=== PATIENT | female | born 1980 | race Caucasian/White ===

== ENCOUNTER 2019-10-11 19:35 | Emergency (ER) | payer OTHER, SELFPAY ==
[2019-10-11 19:42] VITALS: BP 141/90; PULSE 75; RESP 20; TEMP 36.7; O2SAT 100
--- NOTE | 2019-10-11 19:44 | ED.FEMALEGU ---
HPI - Female Genitourinary General Chief complaint: Urogenital-Female Stated complaint: bladder infection Time Seen by Provider: 10/11/19 19:44 Source: patient and RN notes reviewed History of Present Illness HPI Narrative: Patient is a 39-year-old female who presents the urgent care with complaints of a possible UTI. States that last night she noticed pain with urination and increased urinary frequency. Patient states that she has not had any fever, nausea, vomiting, abdominal pain. Denies of any known frequency of UTIs. No other acute complaints. No acute distress noted. Patient read the plan of care. Related Data Home Medications Medication Instructions Recorded Confirmed alprazolam 0.5 mg PO TID 03/10/19 04/02/19 pantoprazole 40 mg PO DAILY 03/10/19 04/02/19 Allergies Allergy/AdvReac Type Severity Reaction Status Date / Time adhesive tape Allergy Intermediate Rash Verified 10/11/19 19:45 Sulfa (Sulfonamide Allergy Mild Unknown Verified 10/11/19 19:45 Antibiotics) Review of Systems Review of Systems: Narrative: CONSTITUTIONAL: Denies fever, chills, or sweats. EYES: Denies visual changes, redness, or discharge. ENT: Denies rhinorrhea, congestion, sore throat, or otalgia. CARDIOVASCULAR: Denies chest pain, palpitations, or edema. RESPIRATORY: Denies cough or dyspnea. GASTROINTESTINAL: Denies abdominal pain, nausea, vomiting, or diarrhea. GENITOURINARY: Reports of dysuria and urinary frequency SKIN: Denies rash or itching. MUSCULOSKELETAL: Denies back pain, joint pain, or myalgia. NEUROLOGIC: Denies headache, numbness, or weakness. All other systems reviewed are negative, except as documented in HPI. [facility] Surgical History Surgical History (Updated 04/24/19 @ 09:07 by Marzena Saavedra, JUAN DANIEL, BC) H/O tubal ligation History of appendectomy History of cholecystectomy History of endometrial ablation Hx of tonsillectomy Social History Social History Gender identity (if verbalized by the patient): Female Comments At the time of my signature, I reviewed and agree with the nursing past medical, surgical, social, and family history. There is no relevant family history pertinent to the patient complaint. Exam Narrative: Exam Narrative: GENERAL: This is a well-nourished, well-developed patient, in no apparent distress. HEAD: normocephalic, atraumatic. EYES: PERRL. Sclera clear/white. Vision is grossly intact. EARS: External ears normal NOSE: External nose normal with no obvious nasal discharge, nares without redness, no rhinorrhea. THROAT: Mucous membranes moist NECK: Neck supple GASTROINTESTINAL: Abdomen soft, non-tender, nondistended. SKIN: warm, intact with no suspicious lesions or rash, good texture and turgor. NEURO: awake, alert, and oriented to person, place and time. There were no obvious focal neurologic abnormalities. EXTREMITIES: No clubbing, cyanosis, or edema. BACK: Negative bilateral CVA tenderness Course Vital Signs Vital signs: Vital Signs Temperature 98.1 F 10/11/19 19:42 Pulse Rate 75 10/11/19 19:42 Respiratory Rate 20 10/11/19 19:42 Blood Pressure 141/90 H 10/11/19 19:42 Pulse Oximetry 100 10/11/19 19:42 Temperature 98.1 F 10/11/19 19:42 Pulse Rate 75 10/11/19 19:42 Respiratory Rate 20 10/11/19 19:42 Blood Pressure 141/90 H 10/11/19 19:42 Pulse Oximetry 100 10/11/19 19:42 Reviewed?patient is informed that they may have pre-hypertension or hypertension based on a blood pressure reading in the department. I recommend the patient call the primary care provider listed on their discharge instructions or a physician of their choice this week to arrange follow-up for further evaluation of possible pre-hypertension or hypertension. MDM - Female Genitourinary MDM Narrative Medical decision making narrative: Reviewed lab results with the patient. She is aware that urine analysis was indicative of
== END 2019-10-11 19:58 | disposition home or self-care (01) ==
PROVIDERS: Emergency Provider Nurse Practitioner Family
DX: N39.0 Urinary tract infection, site not specified (principal); K21.9 Gastro-esophageal reflux disease without esophagitis; F41.9 Anxiety disorder, unspecified
CPT/HCPCS: 81003; 87077; 87086; 87088; 87186; 99213; G0463

== ENCOUNTER 2019-11-04 14:04 | Emergency (ER) | payer OTHER, SELFPAY ==
[2019-11-04 14:18] VITALS: BP 150/92; PULSE 74; RESP 20; TEMP 37.1; O2SAT 98
--- NOTE | 2019-11-04 14:18 | ED.GENADULT ---
HPI - General Adult General Chief complaint: Upper Respiratory Infection Stated complaint: left ear pain/pressure Time Seen by Provider: 11/04/19 14:18 Source: patient Mode of arrival: ambulatory Limitations: no limitations History of Present Illness HPI narrative: 39-year-old female patient presents to the [facility] with complaints of left ear pain that started yesterday. Patient states she has chronic issues with sinus and sinus drainage and states she has been using her nasal steroid as well as a daily antihistamine that she takes at night but noticed that she started having pain in the left ear yesterday. Denies any fevers. Denies any sore throat, chest pain or shortness of breath. Related Data Home Medications Medication Instructions Recorded Confirmed alprazolam 0.5 mg PO TID 03/10/19 04/02/19 pantoprazole 40 mg PO DAILY 03/10/19 04/02/19 Allergies Allergy/AdvReac Type Severity Reaction Status Date / Time adhesive tape Allergy Intermediate Rash Verified 11/04/19 14:20 Sulfa (Sulfonamide Allergy Mild Unknown Verified 11/04/19 14:20 Antibiotics) Review of Systems Review of Systems: Narrative: CONSTITUTIONAL: Denies fever, chills, or sweats. EYES: Denies visual changes, redness, or discharge. ENT: Denies rhinorrhea, congestion, sore throat, positive left otalgia. CARDIOVASCULAR: Denies chest pain, palpitations, or edema. RESPIRATORY: Denies cough or dyspnea. GASTROINTESTINAL: Denies abdominal pain, nausea, vomiting, or diarrhea. GENITOURINARY: Denies dysuria or hematuria. SKIN: Denies rash or itching. MUSCULOSKELETAL: Denies back pain, joint pain, or myalgia. NEUROLOGIC: Denies headache, numbness, or weakness. PSYCHIATRIC: Denies anxiety or depression. [facility] Past Medical History Medical History Anxiety GERD (gastroesophageal reflux disease) Surgical History Surgical History H/O tubal ligation History of appendectomy History of cholecystectomy History of endometrial ablation Hx of tonsillectomy Social History Social History Gender identity (if verbalized by the patient): Female Comments At the time of my signature I agree with nursing past medical history, surgical, social, and family history. There is no relevant family history pertinent to the presenting complaint. Exam Narrative: Exam Narrative: GENERAL: Well-appearing, well-nourished, and in no acute distress. HEAD: Normocephalic, atraumatic. EYES: PERRLA and EOMI. ENT: Nares clear, no rhinorrhea or epistaxis. Mucous membranes moist. Posterior pharynx with no erythema, tonsil enlargement, exudates or lesions present. There is redness to bilateral TMs on visualization. NECK: Supple. No lymphadenopathy CHEST: Clear to auscultation. No respiratory distress. HEART: Regular rate and rhythm. No murmur heard. Normal peripheral pulses. ABDOMEN: Soft, nontender, nondistended, normal active bowel sounds. EXTREMITIES: Normal range of motion. No edema. SKIN: Warm, dry, no rash. NEURO: No focal deficits. Alert and oriented x3. Course Vital Signs Vital signs: Vital Signs Temperature 37.1 C 11/04/19 14:18 Pulse Rate 74 11/04/19 14:18 Respiratory Rate 20 11/04/19 14:18 Blood Pressure 150/92 H 11/04/19 14:18 Pulse Oximetry 98 11/04/19 14:18 Temperature 37.1 C 11/04/19 14:18 Pulse Rate 74 11/04/19 14:18 Respiratory Rate 11/04/19 14:18 Blood Pressure 150/92 H 11/04/19 14:18 Pulse Oximetry 98 11/04/19 14:18 Vital signs reviewed. The patient has been informed that they may have pre-hypertension or Hypertension based on a BP reading in the department. I recommend that the patient call the primary care provider listed on their discharge instructions or a physician of their choice this week to arrange follow up for further evaluation of possible pre-hyp
== END 2019-11-04 14:34 | disposition home or self-care (01) ==
PROVIDERS: Emergency Provider Nurse Practitioner Family; PCP Internal Medicine Geriatric Medicine
DX: H66.93 Otitis media, unspecified, bilateral (principal); F41.9 Anxiety disorder, unspecified; K21.9 Gastro-esophageal reflux disease without esophagitis
CPT/HCPCS: 99213; G0463

== ENCOUNTER 2020-09-25 16:56 | Emergency (ER) | payer OTHER, SELFPAY ==
[2020-09-25 17:05] VITALS: BP 142/71; PULSE 69; RESP 18; TEMP 36.7; O2SAT 99
--- NOTE | 2020-09-25 17:20 | ED.FEMALEGU ---
HPI - Female Genitourinary General Chief complaint: Urogenital-Female Stated complaint: Possible UTI Time Seen by Provider: 09/25/20 17:20 Source: patient Mode of arrival: ambulatory Limitations: no limitations History of Present Illness HPI Narrative: Clarissa Hoyt is a 40 yo female with PMH of GERD, IBS, depression/ anxiety, [facility] of burning and frequency x2 days. He states she is has not had a UTI in a year, and was concerned about what antibiotic and I was going was going to be prescribed as she is on GERD medication Related Data Home Medications Medication Instructions Recorded Confirmed alprazolam 0.5 mg PO TID 03/10/19 09/25/20 pantoprazole 40 mg PO DAILY 03/10/19 09/25/20 Allergies Allergy/AdvReac Type Severity Reaction Status Date / Time adhesive tape Allergy Intermediate Rash Verified 11/04/19 14:20 Sulfa (Sulfonamide Allergy Mild Hives Verified 09/25/20 17:12 Antibiotics) Review of Systems Review of Systems: Narrative: CONSTITUTIONAL: Denies fever, chills, sweats. EYES: Denies visual changes, redness, discharge. ENT: Denies rhinorrhea, congestion, sore throat, otalgia. CARDIOVASCULAR: Denies chest pain, palpitations, edema. RESPIRATORY: Denies dyspnea, wheezing, cough GASTROINTESTINAL: Denies abdominal pain, nausea, vomiting, diarrhea. GENITOURINARY: Has dysuria, hematuria, abnormal discharge SKIN: Denies rash or itching. NEUROLOGIC: Denies numbness, or focal weakness. PSYCHIATRIC: Denies anxiety or depression. [facility] Past Medical History Medical History Anxiety Depression GERD (gastroesophageal reflux disease) IBS (irritable bowel syndrome) Surgical History Surgical History H/O tubal ligation History of appendectomy History of cholecystectomy History of endometrial ablation Hx of tonsillectomy Family History Family History (Updated 09/25/20 @ 17:30 by Melissa Aguirre CNP) Mother Diabetes mellitus Social History Social History (Updated 09/25/20 @ 17:30 by Melissa Aguirre CNP) Smoking status: Never smoker Alcohol intake: never Gender identity (if verbalized by the patient): Female Comments At time of signature, I agree with nursing past medical, surgical, social and family history. There is no relevant family history pertinent to the presenting complaint. Exam Narrative: Exam Narrative: GENERAL: This is a well-nourished, well-developed patient, in mild distress. HEAD: normocephalic, atraumatic. EYES: Sclera clear/white. Vision is grossly intact. EARS: External ears normal, . Hearing grossly intact. NOSE: External nose normal without nasal discharge, nares without redness, no rhinorrhea. THROAT: Mucous membranes moist, NECK: Neck supple, CARDIOVASCULAR: Regular rate and rhythm without murmurs, gallops, or rubs. RESPIRATORY: Clear to auscultation. Breath sounds equal bilaterally. No wheezes, rales, or rhonchi. GASTROINTESTINAL: Abdomen soft, non-tender, SKIN: warm, intact with no suspicious lesions or rash, good texture and turgor. NEURO: awake, alert, and oriented to person, place and time. There were no obvious focal neurologic abnormalities. Steady gait EXTREMITIES: Normal range of motion. BACK: Nontender without deformity Course Course Emergency Course: Patient comes to [facility] for treatment of UTI symptoms UA dip shows both blood and leukocyte esterase in urine urine sent for culture Started on cephalexin 500 mg 1 twice daily, Pyridium 100 mg twice daily, and Diflucan at end of antibiotic course Vital Signs Vital signs: Vital Signs Temperature 98.1 F 09/25/20 17:05 Pulse Rate 69 09/25/20 17:05 Respiratory Rate 18 09/25/20 17:05 Blood Pressure 142/71 H 09/25/20 17:05 Pulse Oximetry 99 09/25/20 17:05 Temperature 98.1 F 09/25/20 17:05 Pulse Rate 69 09/25/20 17:05 Respiratory
== END 2020-09-25 17:35 | disposition home or self-care (01) ==
PROVIDERS: Emergency Provider Nurse Practitioner; PCP Internal Medicine Geriatric Medicine
DX: N30.01 Acute cystitis with hematuria (principal); K21.9 Gastro-esophageal reflux disease without esophagitis; F41.9 Anxiety disorder, unspecified
CPT/HCPCS: 81003; 87077; 87086; 87088; 87186; 99213; G0463

== ENCOUNTER 2022-07-03 09:15 | Outpatient (CLI) | payer OTHER, SELFPAY ==
[2022-07-03 09:52] LABS: Beta HCG Quantitative < 2.39 mIU/ML
== END 2022-07-03 09:16 | disposition home or self-care (01) ==
PROVIDERS: PCP Internal Medicine Geriatric Medicine; Visit Provider Obstetrics & Gynecology
DX: N92.6 Irregular menstruation, unspecified (principal)
CPT/HCPCS: 36415; 84702

== ENCOUNTER 2022-09-02 15:51 | Outpatient (CLI) | payer OTHER, SELFPAY ==
--- NOTE | ~2022-09-02 | US_ITS ---
EXAMINATION: US pelvic complete w TV DATE: 09/02/2022 16:33 INDICATION: Irregular menses Comparison:No prior studies for comparison. TECHNIQUE: Multiple transabdominal and endovaginal sonographic images of the pelvis performed. FINDINGS: The uterus measures 11.3 x 5 x 5.5 cm. The endometrial complex measures 9 mm. The ovaries are not visualized. There is no free fluid in the pelvis. There are no abnormal masses seen on either side. IMPRESSION: 1. Mildly enlarged uterus. No discrete uterine mass. Reviewed, dictated and finalized at location L.
== END 2022-09-02 15:52 | disposition home or self-care (01) ==
PROVIDERS: PCP Internal Medicine Geriatric Medicine; Visit Provider Obstetrics & Gynecology
DX: N92.6 Irregular menstruation, unspecified (principal); N85.2 Hypertrophy of uterus
CPT/HCPCS: 76830; 76856

== ENCOUNTER 2022-11-01 07:28 | Outpatient (CLI) | payer OTHER, SELFPAY ==
[2022-11-01 07:48] LABS: Hemoglobin 12.2 g/dL (12.0-15.0); Mean Corpuscular HGB Conc 31.3 g/dl (32-36); Mean Platelet Volume 10.3 fl (7.4-10.4); Platelet Count Result 309 k/mm3 (150-375); Red Cell Distribution Width 14.3 % (11.5-14.5); White Blood Count 7.9 K/mm3 (4.5-10.0)
== END 2022-11-01 07:29 | disposition home or self-care (01) ==
PROVIDERS: PCP Internal Medicine Geriatric Medicine; Visit Provider Obstetrics & Gynecology
DX: N94.6 Dysmenorrhea, unspecified (principal); N92.0 Excessive and frequent menstruation with regular cycle; Z01.818 Encounter for other preprocedural examination
CPT/HCPCS: 36415; 85027; 86850; 86900; 86901

== ENCOUNTER 2022-11-04 01:20 | Day surgery (SDC) | payer OTHER, SELFPAY ==
[2022-10-28 14:31] VITALS: BMI 42.3
--- NOTE | 2022-10-28 14:38 | PC.NURSE ---
Report to the Outpatient Waiting Room, entrance under the green pavilion located off [facility], at time 0600_ on date 11/04/22_. Planned Procedure Time: _0730_. Time changes happen often and if your time is changed the preop area will call you the afternoon before. - You and your visitor will be asked to self-screen and do not enter if you have any COVID symptoms. - A mask is optional within the hospital at this time. Patients may have clear liquids (water, carbonated beverages, clear teas, apple juice) until 3 hours prior to surgery with a maximum of 20 ounces. - No food from midnight until time of surgery - Infants may have breast milk until 4 hours before surgery, formula 6 hours prior to surgery. - Children will be allowed to drink immediately following surgery. If applicable, please bring a bottle or sippy cup to assist with drinking. Juice, water, soda, and popsicles are readily available. For infants on formula, please bring formula the day of surgery. Pacifiers are allowed. Take the following medications with a SIP of water the morning of surgery: ALPRAZOLAM_ DO NOT STOP ANY OF YOUR OTHER PRESCRIPTION MEDICATIONS PRIOR TO SURGERY ?EXCEPT THE FOLLOWING Medications to discontinue per physician IBUPROFEN Date to take last dose 11/01/22__ Please no make-up, nail belarusian, hairspray, perfume, deodorant, or body powder the day of surgery. No jewelry (including any body piercings) or valuables the day of surgery, leave them at home. Please take a shower or bath the night before, or the morning of, surgery with an antibacterial soap. Wear comfortable, loose fitting clothing. Children are encouraged to wear pajamas. - Jewelry must be removed prior to entering the operating room. Rings and piercings that are not removed may be cut off. - The hospital will not accept responsibility for valuables. - Please leave all valuables, including medications, at home the day of surgery. If you are going home after surgery, a licensed motorcycle delivery driver must drive you home. - NO public transportation without another adult if you receive anesthesia. - We recommend that an adult stay with you for 24 hours following discharge. - We also recommend that you do not drive, make important decision, drink alcoholic beverages, or take any drugs that were not prescribed by your health care provider for at least 24 hours after your discharge time. For Pediatric surgeries, we recommend two adults accompany the child home. Follow any additional instructions given to you from your surgeon. If you or anyone in your household have experienced Covid symptoms in the past week, please notify your surgeon or the nurse liaison at the phone number below for possible testing. Telephone instructions given to _PATIENT__and asked if any additional questions and then verbalized understanding. Patient advised to call surgeon office or pre surgery nurse liaison [phone] if any additional questions.
--- NOTE | 2022-11-03 16:09 | PM.IMHP ---
H&P: HPI History of Present Illness Date/Time: 11/03/22 16:09 42-year-old 4 para 2021 female presents with complaints of heavy vaginal bleeding cramping clotting underwent endometrial ablation approximately 7 years ago that did not help significantly and she is having increasing problems. Bleeds very heavily with clotting and cramping for 3-4 weeks, which is followed by 1-2 months without a period, and then the cycle recurs. She also states she has an if scant amount pelvic pain and discomfort throughout the month in addition to the above. Also relates stress incontinence for which she has seen Dr. Jung will be performing a sling procedure at sometime in the future. Ultrasound has also been recently performed with did reveal 12x5x6 uterus with no specific fibroids or abnormalities and endometrial complex of 9mm. Chief Complaint: Menometrorrhagia Review of Systems Review of Systems: All systems reviewed & are unremarkable except as noted in HPI and below PMFSH Past Medical History Medical History Abnormal Pap smear of cervix 08/20/2002 ASCUS +HPV, 12/17/2002 LGSIL, 01/21/2003 LGSIL, 12/16/2005 ASCUS, LEEP - 15 YRS AGO Anxiety Depression GERD (gastroesophageal reflux disease) HPV in female IBS (irritable bowel syndrome) Irregular menstrual cycle Miscarriage 05/03 05/04 Normal colonoscopy (05/11/17) Screening mammogram, encounter for Vaginal delivery 01/21/11 Mohsen vomiting--no complications 03/06/13 Diane severe hyperemesis--no complications Surgical History Surgical History H/O LEEP H/O tubal ligation (05/02/13) History of appendectomy (~1990) History of carpal tunnel surgery 11/30/18 (R) hand 01/14/20 (L) hand History of cholecystectomy (~1999) History of colposcopy with cervical biopsy 01/21/03 benign History of dilation and curettage 05/03 suction d&c--miscarriage 05/30/14 hscope d&c/polypectomy 07/13/18 hscope d&c History of endometrial ablation (07/13/18) History of ovarian cystectomy (04/10/19) lscope (R) ovarian cystectomy w/lysis of adhesions--benign Hx of tonsillectomy Family History Family History Mother Diabetes mellitus Heart disease Alzheimer's disease Dementia Father Diabetes mellitus Heart disease Cerebrovascular accident Hypertension Grandparent Diabetes mellitus maternal grandmother Breast cancer maternal grandmother Other Neoplasm of ovary maternal aunt Breast cancer maternal aunt Social History Social History Smoking status: Never smoker Alcohol intake: current Alcohol use details: 2 PER YEAR Substance use: never Substance use type: does not use Living arrangements: with family Additional living arrangements comments: Occupation/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 Gender identity (if verbalized by the patient): Female Sexual Orientation (if Verbalized by the Patient): Straight or Heterosexual Meds Home Medications and Allergies Home Medications Medication Instructions Recorded Confirmed Type alprazolam 0.5 mg tablet 0.5 mg PO TID PRN Anxiety 03/10/19 10/28/22 History pantoprazole 40 mg tablet,delayed 40 mg PO DAILY 03/10/19 10/28/22 History release cholestyramine (with sugar) 4 gram 1 ea PO PRN PRN IBS FLAIR UP 05/12/22 10/28/22 History oral powder fluticasone propionate 50 1 spray intranasal DAILY 10/28/22 10/28/22 History mcg/actuation nasal spray,suspension Allergies Allergy/AdvReac Type Severity Reaction Status Date / Time adhesive tape Allergy Intermediate Rash Verified 10/28/22 14:28 Sulfa (Sulfonamide Allergy Mild Hives Verified 10/28/22 14:28 Antibiotics) Exam Const:
[2022-11-04] VITALS (10 sets, daily range): BP systolic 91–177; BP diastolic 34–106; PULSE 54–90; RESP 12–18; TEMP 36.2–37.3; O2SAT 96–99
[2022-11-04] MEDS: ACETAMINOPHEN 500 MG TABLET 1000 MG PO (06:30)
--- NOTE | 2022-11-04 06:42 | WPDANESEPPF ---
Anes - Initial Pre Proc Eval Procedure: Operation Date: 11/04/22 07:30 Proposed Procedures p Robotic Assisted Total Laparoscopic Hysterectomy with Bilateral Salpingectomy - Ori Valladares MD Date/Time: 11/04/22 06:42 Surgeon: Ori Valladares MD Pre Op Diagnosis: menorrhagia Patient Data Age: 42 Gender: F Height: 1.63 m Weight: 112 kg Allergies Allergy/AdvReac Type Severity Reaction Status Date / Time adhesive tape Allergy Intermediate Rash Verified 11/04/22 06:09 Sulfa (Sulfonamide Allergy Mild Hives Verified 11/04/22 06:09 Antibiotics) Home Medications Medication Instructions Recorded Confirmed Type alprazolam 0.5 mg tablet 0.5 mg PO TID PRN Anxiety 03/10/19 10/28/22 History pantoprazole 40 mg tablet,delayed 40 mg PO DAILY 03/10/19 10/28/22 History release cholestyramine (with sugar) 4 gram 1 ea PO PRN PRN IBS FLAIR UP 05/12/22 10/28/22 History oral powder fluticasone propionate 50 1 spray intranasal DAILY 10/28/22 10/28/22 History mcg/actuation nasal spray,suspension Patient hx anesthesia problems: none Family hx anesthesia problems: none Results Review: All pre-operative results and documents have been reviewed as part of the pre-operative evaluation. [facility] Past Medical History Medical History Abnormal Pap smear of cervix 08/20/2002 ASCUS +HPV, 12/17/2002 LGSIL, 01/21/2003 LGSIL, 12/16/2005 ASCUS, LEEP - 15 YRS AGO Anxiety Depression GERD (gastroesophageal reflux disease) HPV in female IBS (irritable bowel syndrome) Irregular menstrual cycle Miscarriage 05/03 05/04 Normal colonoscopy (05/11/17) Screening mammogram, encounter for Vaginal delivery 01/21/11 Mohsen vomiting--no complications 03/06/13 Diane severe hyperemesis--no complications Surgical History Surgical History H/O LEEP H/O tubal ligation (05/02/13) History of appendectomy (~1990) History of carpal tunnel surgery 11/30/18 (R) hand 01/14/20 (L) hand History of cholecystectomy (~1999) History of colposcopy with cervical biopsy 01/21/03 benign History of dilation and curettage 05/03 suction d&c--miscarriage 05/30/14 hscope d&c/polypectomy 07/13/18 hscope d&c History of endometrial ablation (07/13/18) History of ovarian cystectomy (04/10/19) lscope (R) ovarian cystectomy w/lysis of adhesions--benign Hx of tonsillectomy Family History Family History Mother Diabetes mellitus Heart disease Alzheimer's disease Dementia Father Diabetes mellitus Heart disease Cerebrovascular accident Hypertension Grandparent Diabetes mellitus maternal grandmother Breast cancer maternal grandmother Other Neoplasm of ovary maternal aunt Breast cancer maternal aunt Social History Social History Smoking status: Never smoker Alcohol intake: current Alcohol use details: 2 PER YEAR Substance use: never Substance use type: does not use Living arrangements: with family Additional living arrangements comments: Occupation/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 Gender identity (if verbalized by the patient): Female Sexual Orientation (if Verbalized by the Patient): Straight or Heterosexual Anes - Eval Final PreProcedure Day of Procedure 11/04/22 06:42 Patient weight: morbidly obese Heart: regular rate and rhythm Lungs: clear to auscultation Airway: Mallampati scale class II and special considerations poor opening Neurological: alert and oriented Last oral intake: >/= 8 hours ASA classification: III Emergent: no Anesthetic plan: proceed Anesthesia type and monitoring: general ETT and standard monitoring Results Review: All pre-operative results and documents have b
[2022-11-04] MEDS: LACTATED RINGERS 1,000 ML 30 ML IV CONT ×2 (06:51→08:57)
[2022-11-04] MEDS: KETOROLAC 15 MG/ML VIAL (*BKC) IV PUSH (07:08)
--- NOTE | 2022-11-04 07:15 | WPDHPUPDATE1 ---
History and Physical Update Update Date/Time: 11/04/22 07:15 History and Physical has been reviewed, including an updated exam of the patient. There are NO changes in the patient's condition. Risks, benefits, and alternatives have been discussed and questions answered. Patient agrees to proceed with procedure.
[2022-11-04] MEDS: ceFAZolin 2 GM/D5W 50 ML 2 GM/50 ML BAG IVPB (07:25)
--- NOTE | 2022-11-04 08:41 | W.PM.PROC2 ---
Procedure Note - Detailed Date of Procedure 11/04/22 Pre-op Diagnosis menorrhagia Post-op Diagnosis Same Procedure Performed Robotic assisted total laparoscopic hysterectomy with bilateral salpingectomy Surgeon Ori Valladares MD Anesthesia General Findings Enlarged globular uterus, tubes and ovaries without abnormality other than Filshie clips which are noted bilaterally on the tubes Description of Procedure Patient prepped and draped usual manner for this procedure. Cervical instruments were placed for uterine mobility throughout the case. Attention was then placed the abdomen where the abdominal trocar sites were marked and trocars were placed under direct visualization. Patient placed in Trendelenburg position, trocars were tested Liban system, and instruments were placed under direct visualization. Surgeon then moved to the console. Findings were noted as above with mildly enlarged uterus and tubes over without abnormality. Mesial salpinx was cauterized and cut bilaterally and tubes were removed. Utero-ovarian ligaments and round ligament cauterized and cut bilaterally anterior cul-de-sac was entered and bladder flap was developed without difficulty. Posterior leaf was also incised to reveal the uterine vessels. These were cauterized and cut to devascularized the uterus. Once this had been undertaken the colpotomy incision was made posteriorly and circumferentially carried around the cervix to release the cervix from the vagina. Uterus was delivered into the vagina and there was no bleeding noted. Cuff was then closed using V lock suture from the right angle to the left angle, with a 2nd layer from the left angle to the right angle. Irrigation was undertaken again no bleeding, and Orin was placed throughout over all of the surgical areas. At this point the case was considered terminated, gas was allowed to escape, and incisions approximated using 4-0 Monocryl. Patient was sent to recovery room in stable condition. Estimated Blood Loss 50 Drains No Packing No Pathology Yes Complications No immediate complications Condition Stable Disposition PACU [facility] Billing Surgery - Charge Forward: Surgery Billing
[2022-11-04] MEDS: fentaNYL CITRATE INJ (*CRX) 100 MCG/2 ML VIAL 25 MCG IV PUSH ×3 (09:39→09:50)
[2022-11-04] MEDS: ONDANSETRON INJ 4 MG/2 ML VIAL IV PUSH ×2 (09:39→19:45)
--- NOTE | 2022-11-04 10:31 | ADMGEN ---
This patient, Clarissa Mccallum, was admitted to [facility] 2nd Floor Room 289-00. Patient/family oriented to hospital policies and general routines including ID bracelet, bed and alarms, visiting hours, pain management, procedures, bathroom and other care routines, personal items, smoking policy, room service/diet, and visiting hours. Information on how to activate the Rapid Response Team has been discussed. Patient/Family are encouraged to report perceived risks to care and to ask questions if they do not understand what they are told or what they should do.
[2022-11-04] MEDS: DEXTROSE 5%/LACTATED RINGERS 1,000 ML 125 ML IV CONT (11:08)
[2022-11-04] MEDS: KETOROLAC 30 MG/ML VIAL (*BKC) IV PUSH (11:11)
[2022-11-04] MEDS: HYDROcodone/acetaminophen (*CRX) 10-325 MG TABLET 1 TAB PO ×2 (13:14→17:06)
[2022-11-04] MEDS: SIMETHICONE 80 MG TAB.CHEW PO (14:14)
[2022-11-04] MEDS: MORPHINE SULFATE (*CRX) 4 MG/ML INJ IV PUSH (15:42)
[2022-11-04] MEDS: IBUPROFEN 600 MG TABLET PO (17:06)
[2022-11-05 01:24] VITALS: BP 133/78; PULSE 53; RESP 16; TEMP 37.1; O2SAT 99
[2022-11-05] MEDS: ALPRAZolam (*CRX) 0.5 MG TABLET PO (01:37)
[2022-11-05 05:29] VITALS: BP 118/70; PULSE 61; RESP 14; TEMP 36.6; O2SAT 97
[2022-11-05 06:02] LABS: Basophils Percent Auto 0.2 % (0.2-1.2); Eosinophils Percent Auto 0.2 % (0-4.4); Hematocrit 37.6 % (37.0-47.0); Hemoglobin 11.5 g/dL (12.0-15.0); Immature Granulocyte Absolute 0.06 K/mm3 (0.00-0.031); Immature Granulocyte Percent A 0.5 % (0-0.5); Lymphocytes Absolute Auto 1.77 K/mm3 (0.9-3.2); Mean Corpuscular HGB Conc 30.6 g/dl (32-36); Mean Corpuscular Hemoglobin 25.9 pg (26-34); Mean Corpuscular Volume 84.7 fl (80-100); Mean Platelet Volume 10.5 fl (7.4-10.4); Monocytes Absolute Auto 0.5 K/mm3 (0.1-0.6); Monocytes Percent Auto 3.8 % (2.6-8.5); Neutrophils Absolute Auto 10.3 K/mm3 (1.3-6.7); Neutrophils Percent Auto 81.3 % (45.5-73.1); Platelet Count Result 277 k/mm3 (150-375); Red Blood Count 4.44 M/mm3 (4.2-5.4); White Blood Count 12.7 K/mm3 (4.5-10.0)
[2022-11-05] MEDS: IBUPROFEN 600 MG TABLET PO (07:39)
[2022-11-05] MEDS: PANTOPRAZOLE 40 MG TABLET PO (07:39)
[2022-11-05 08:35] VITALS: BP 143/84; PULSE 74; RESP 16; TEMP 36.9; O2SAT 100
== END 2022-11-05 10:15 | disposition home or self-care (01) ==
LOC: ANHSURGERY 05:47 → ANHOB2 15:59
PROVIDERS: PCP Internal Medicine Geriatric Medicine; Visit Provider Obstetrics & Gynecology
PROC: (CPT 58571; principal; 2022-11-04 07:30)
DX: N92.0 Excessive and frequent menstruation with regular cycle (principal); N94.6 Dysmenorrhea, unspecified; N80.03 Adenomyosis of the uterus; N87.9 Dysplasia of cervix uteri, unspecified; D25.1 Intramural leiomyoma of uterus; N39.3 Stress incontinence (female) (male); K21.9 Gastro-esophageal reflux disease without esophagitis; F41.9 Anxiety disorder, unspecified; F32.A Depression, unspecified; E66.01 Morbid (severe) obesity due to excess calories; Z68.41 Body mass index [BMI] 40.0-44.9, adult
CPT/HCPCS: 58571; S2900; 36415; 85025; 85027; 86850; 86900; 86901; 88307; 99199; A9270; J0330; J0690; J1100; J1170; J1885; J2250; J2270; J2405; J2704; J3010; J7030; J7120; J7121

== ENCOUNTER 2022-12-08 10:54 | Outpatient (CLI) | payer OTHER, SELFPAY ==
--- NOTE | ~2022-12-08 | US_ITS ---
EXAMINATION: US pelvic complete w TV DATE: 12/08/2022 11:45 INDICATION: Pelvic and perineal pain, prior hysterectomy TECHNIQUE: Multiple transabdominal and endovaginal sonographic images of the pelvis were obtained. COMPARISON: 09/02/2022 FINDINGS: There are changes of interval hysterectomy. There is a small volume of fluid in the pelvis at the hysterectomy site. The left ovary is not visualized however no left adnexal abnormality is see n. The right ovary measures 3.0 x 2.7 x 2.5 cm. There is normal vascular flow in the right ovary. IMPRESSION: 1. Changes of interval hysterectomy with small volume of fluid at the hysterectomy site which may be postoperative in nature. Reviewed, dictated and finalized at location B. IMPRESSION: 1. Changes of interval hysterectomy with small volume of fluid at the hysterect clive site which may be postoperative in nature.
== END 2022-12-08 10:55 | disposition home or self-care (01) ==
LOC: ANHIMG 10:56
PROVIDERS: PCP Internal Medicine Geriatric Medicine; Visit Provider Obstetrics & Gynecology
DX: R10.2 Pelvic and perineal pain (principal); G89.18 Other acute postprocedural pain
CPT/HCPCS: 76830; 76856

== ENCOUNTER 2023-03-25 12:38 | Outpatient (CLI) | payer OTHER, SELFPAY ==
--- NOTE | ~2023-03-25 | US_ITS ---
EXAMINATION: US thyroid DATE: 03/25/2023 13:11 INDICATION: Thyroid nodule. TECHNIQUE: Multiple ultrasound images of the thyroid were obtained. COMPARISON: None. FINDINGS: The right thyroid lobe measures 3.9 x 1.7 x 1.9 cm. The left thyroid lobe measures 3.7 x 1.3 x 1.4 c m. In the right thyroid lobe, there is a 10 mm solid, hypoechoic, wider than tall nodule with ill-de fined margin without echogenic foci (TI-RADS TR4). In the right thyroid lobe, there is a 2.3 cm almos t entirely solid, hypoechoic, wider than tall nodule with smooth margin without echogenic foci (TR4). In the left thyroid lobe, there is a 4 mm nodule. IMPRESSION: 1. Multinodular goiter. Ultrasound-guided fine needle aspiration of the 2.3 cm right thyroid nodule i s recommended. Reviewed, dictated and finalized at location A. WORKER IMPRESSION: 1. Multinodular goiter. Ultrasound-guided fine needle aspiration of the 2.3 cm right thyroid nodule is recommended.
== END 2023-03-25 12:39 | disposition home or self-care (01) ==
PROVIDERS: PCP Internal Medicine Geriatric Medicine; Visit Provider Internal Medicine Geriatric Medicine
DX: E04.2 Nontoxic multinodular goiter (principal)
CPT/HCPCS: 76536

== ENCOUNTER 2023-04-29 12:42 | Outpatient (CLI) | payer OTHER, SELFPAY ==
--- NOTE | ~2023-04-29 | US_ITS ---
EXAMINATION: US FNA w image guidance DATE: 04/29/2023 13:46 INDICATION: 2.3 cm TI RADS 4 right thyroid nodule TECHNIQUE: A time-out was performed to verify the patient's name, date of , and procedure to be performed . The procedure and its benefits and risks were discussed with the patient. Risks specifically discus sed included bleeding and infection. The patient understood the risks and agreed to proceed. The neck was prepped and draped in the usual sterile manner. 2 mL 1% lidocaine was used for local anesthesia . 6 passes were made with a 25G needle into the lesion. Appropriate needle location was documented with continuous sonographic guidance. A sterile bandage was applied. There were no immediate compli cations. FINDINGS: Grayscale ultrasound images demonstrate biopsy needles advanced into a 2.3 cm hypoechoic solid mass i n the mid right thyroid. IMPRESSION: 1. Successful ultrasound-guided fine needle aspiration of a 2.3 cm TI RADS 4 right thyroid mass of c oncern. Reviewed, dictated and finalized at location A. OR PASTOR IMPRESSION: 1. Successful ultrasound-guided fine needle aspiration of a 2.3 cm TI RADS 4 r ight thyroid mass of concern.
== END 2023-04-29 12:43 | disposition home or self-care (01) ==
LOC: ANHIMG 12:43
PROVIDERS: PCP Internal Medicine Geriatric Medicine; Visit Provider Internal Medicine Geriatric Medicine
DX: R93.49 Abnormal radiologic findings on diagnostic imaging of other urinary organs (principal)
CPT/HCPCS: 10005; 88172; 88173; 88305

== ENCOUNTER 2023-07-13 08:42 | Outpatient (CLI) | payer OTHER, SELFPAY ==
--- NOTE | ~2023-07-13 | MMUS_ITS ---
EXAMINATION: MM diagnostic christel LT w gladys, US breast LT complete HISTORY: Palpable left axillary abnormality. TECHNIQUE: Additional 3-D tomosynthesis images of the left breast were performed and synthetic 2-D im ages were generated. CAD analysis was submitted and interpreted. High resolution complete left breast ultrasound was performed. COMPARISON: Comparison to multiple prior studies sequentially, with oldest reviewed study dated 10/2018. BREAST PARENCHYMAL COMPOSITION: Not dense: There are scattered areas of fibroglandular density. FINDINGS: MAMMOGRAPHIC FINDINGS: Stable left breast mass in the lower inner quadrant of the left breast, likely benign intramammary ly mph node. No new masses, calcifications or architectural distortion. ULTRASOUND: Complete US of all 4 quadrants of the left breast/axilla and retroareolar region was reviewed. No dis crete solid or cystic masses are identified in the left breast. In the axilla in the area of palpable concern there is a cystic mass measuring 6 mm located in the subcutaneous tissues with parallel orie ntation, no internal vascularity and no posterior features, possibly benign sebaceous cyst. IMPRESSION: 1. Probable benign complicated cyst of the left axilla measuring 6 mm. 2. Recommend 6 month follow-up bilateral screening mammogram and limited axillary ultrasound BI-RADS category 3, probably benign findings. Reviewed, dictated and finalized at location A. IMPRESSION: 1. Probable benign complicated cyst of the left axilla measuring 6 mm. 2. Recommend 6 month follow-up bilateral screening mammogram and limited axilla ry ultrasound BI-RADS category 3, probably benign findings.
== END 2023-07-13 08:43 ==
LOC: MICIMG 08:43
PROVIDERS: PCP Obstetrics & Gynecology; Visit Provider Obstetrics & Gynecology
DX: N63.20 Unspecified lump in the left breast, unspecified quadrant (principal); R92.8 Other abnormal and inconclusive findings on diagnostic imaging of breast
CPT/HCPCS: 76641; 77061; 77065; G0279

== ENCOUNTER 2023-12-05 10:08 | Outpatient (CLI) | payer OTHER, MEDICAID, SELFPAY ==
--- NOTE | ~2023-12-05 | US_ITS ---
US breast LT limited 12/05/2023 10:52 Indication: Palpable area left axilla Procedure: High-resolution Limited ultrasound of the left axilla Comparison: Diagnostic mammogram dated 07/13/2023 Findings: In the left axilla there is an oval lymph node measuring 1.4 x 1.2 x 0.7 cm with fatty hilu m. A second lymph node is identified in this region measuring 9 x 6 x 7 mm. No other masses are seen. No fluid collections. Impression: 1: Normal-appearing left axillary lymph nodes with fatty hilum. No suspicious masses are identified. BI-RADS CATEGORY 2 - BENIGN FINDINGS Reviewed, dictated and finalized at location B. Impression: 1: Normal-appearing left axillary lymph nodes with fatty hilum. No suspicious m asses are identified. BI-RADS CATEGORY 2 - BENIGN FINDINGS
--- NOTE | ~2023-12-05 | MM_ITS ---
EXAMINATION: MM screening christel BI w gladys HISTORY: Screening TECHNIQUE: Craniocaudal and mediolateral oblique 3-D tomosynthesis images were obtained and synthetic 2-D images were generated. CAD analysis was submitted and interpreted. COMPARISON: Comparison to multiple prior studies sequentially, with oldest reviewed study dated Manohar rison to multiple prior studies sequentially, with oldest reviewed study dated 06/01/2018. . BREAST PARENCHYMAL COMPOSITION: Not dense: There are scattered areas of fibroglandular density. FINDINGS: There is a mass in the upper inner quadrant of the right breast, middle third. This mass walters s increased in size and density compared with prior studies. The left breast is stable without eviden ce for malignancy. IMPRESSION: 1. Developing right breast mass upper inner quadrant middle third. 2. Additional mammographic views and possible breast ultrasound are recommended. BI-RADS Category 0: Incomplete: Needs additional imaging evaluation. Reviewed, dictated and finalized at location B. IMPRESSION: 1. Developing right breast mass upper inner quadrant middle third. 2. Additional mammographic views and possible breast ultrasound are recommended . BI-RADS Category 0: Incomplete: Needs additional imaging evaluation.
== END 2023-12-05 10:09 ==
LOC: MICIMG 10:11
PROVIDERS: PCP Internal Medicine Geriatric Medicine; Visit Provider Obstetrics & Gynecology
DX: Z12.31 Encounter for screening mammogram for malignant neoplasm of breast (principal); N60.02 Solitary cyst of left breast
CPT/HCPCS: 76642; 77063; 77067

== ENCOUNTER 2023-12-07 11:52 | Outpatient (CLI) | payer OTHER, MEDICAID, SELFPAY ==
--- NOTE | ~2023-12-07 | MMUS_ITS ---
EXAMINATION: MM diagnostic christel RT w gladys, US breast RT limited HISTORY: Follow-up right breast asymmetries TECHNIQUE: Additional 3-D tomosynthesis images of the right breast were performed and synthetic 2-D i mages were generated. CAD analysis was submitted and interpreted. High resolution Limited right breas t ultrasound was performed. COMPARISON: No prior studies for comparison. BREAST PARENCHYMAL COMPOSITION: Not dense: There are scattered areas of fibroglandular density. FINDINGS: MAMMOGRAPHIC FINDINGS: There are multiple clustered masses in the upper inner quadrant of the right breast, middle third. Th ere are no suspicious calcifications or architectural distortion. ULTRASOUND: Limited right breast ultrasound: At 1:00, 7 cm from the nipple, there is a cluster of microcysts elisabeth uring up to 8 mm in aggregate, corresponding to the mammographic findings. No suspicious sonographic abnormalities to suggest malignancy. IMPRESSION: 1. Cluster of microcysts measuring 8 mm corresponds to area of right breast nodules, although they ma y not entirely account for the nodules. No suspicious sonographic abnormalities. 2. Recommend 6 month follow-up diagnostic right mammogram. BI-RADS category 3, probably benign findings. Reviewed, dictated and finalized at location B. IMPRESSION: 1. Cluster of microcysts measuring 8 mm corresponds to area of right breast nod ules, although they may not entirely account for the nodules. No suspicious son ographic abnormalities. 2. Recommend 6 month follow-up diagnostic right mammogram. BI-RADS category 3, probably benign findings.
== END 2023-12-07 11:53 ==
LOC: MICIMG 11:52
PROVIDERS: PCP Obstetrics & Gynecology; Visit Provider Obstetrics & Gynecology
DX: N60.01 Solitary cyst of right breast (principal)
CPT/HCPCS: 76642; 77061; 77065; G0279

== ENCOUNTER 2024-05-31 12:22 | Outpatient (CLI) | payer OTHER, MEDICAID, SELFPAY ==
--- NOTE | ~2024-05-31 | MMUS_ITS ---
EXAMINATION: MM diagnostic christel RT w gladys, US breast RT limited HISTORY: Follow-up right breast mass TECHNIQUE: Additional 3-D tomosynthesis images of the right breast were performed and synthetic 2-D i mages were generated. CAD analysis was submitted and interpreted. High resolution Limited right breas t ultrasound was performed. COMPARISON: Comparison to multiple prior studies sequentially, with oldest reviewed study dated 06/12. BREAST PARENCHYMAL COMPOSITION: Not dense: There are scattered areas of fibroglandular density. FINDINGS: MAMMOGRAPHIC FINDINGS: There are no suspicious masses, calcifications or architectural distortion in the right breast to sug gest malignancy. ULTRASOUND: Limited right breast ultrasound: At 10:00, 10 cm from the nipple there is a 4 mm cyst. No suspicious masses to suggest malignancy. IMPRESSION: 1. No evidence for malignancy in the right breast. 2. Routine yearly screening mammogram and regular clinical breast examination are recommended. BI-RADS Category 2: Benign finding(s). Reviewed, dictated and finalized at location B. ER IMPRESSION: 1. No evidence for malignancy in the right breast. 2. Routine yearly screening mammogram and regular clinical breast examination a re recommended. BI-RADS Category 2: Benign finding(s).
== END 2024-05-31 12:23 | disposition home or self-care (01) ==
LOC: MICIMG 12:23
PROVIDERS: PCP Obstetrics & Gynecology; Visit Provider Obstetrics & Gynecology
DX: N60.01 Solitary cyst of right breast (principal)
CPT/HCPCS: 76642; 77061; 77065; G0279